=== PATIENT | male | born 1975 | race African-American/Black ===

== ENCOUNTER → 2020-02-01 | Emergency (ER) | payer MEDICAID ==
[~2020-02-01] VITALS: Ht 170.2 cm; Wt 68.0 kg
[~2020-02-01] MED LIST: CERT200K SC; CIPR-173 PO; ONDANSETRON HCL 4 MG/2 ML VIAL IM ONE; ONDANSETRON HCL 4 MG/2 ML VIAL IV ONE; SODIUM CHLORIDE 0.9% 1,000 ML IV ONE; SODIUM CHLORIDE 0.9% 500 ML IV ONE
[2020-02-01 01:07] VITALS: BP 117/82
== END | disposition home or self-care (01) ==
LOC: EDUNIT# 00:09 → EDBD 00:25 → ER 00:28
DX: S05.12XA Contusion of eyeball and orbital tissues, left eye, initial encounter (principal); F10.129 Alcohol abuse with intoxication, unspecified; I10 Essential (primary) hypertension; E11.9 Type 2 diabetes mellitus without complications; Y04.0XXA Assault by unarmed brawl or fight, initial encounter; Y93.89 Activity, other specified; Y92.89 Other specified places as the place of occurrence of the external cause; Y99.8 Other external cause status; Y90.9 Presence of alcohol in blood, level not specified
CPT/HCPCS: 70450; 70486; 72125; 96372; 99285; J2405; J7030

== ENCOUNTER 2024-01-21 14:12 | Emergency (ER) | payer MEDICAID ==
[~2024-01-21] VITALS: Ht 167.6 cm; Wt 63.6 kg
[~2024-01-21 14:12] MED LIST changes: -ONDANSETRON HCL 4 MG/2 ML VIAL IM ONE; -ONDANSETRON HCL 4 MG/2 ML VIAL IV ONE; -SODIUM CHLORIDE 0.9% 1,000 ML IV ONE; -SODIUM CHLORIDE 0.9% 500 ML IV ONE
[2024-01-21 16:06] LABS: Basophils # (auto) 0.1 10 ^3/uL (0-0.2); Eosinophils # (auto) 0.3 10 ^3/uL (0-0.8)
[2024-01-21] MEDS: METOCLOPRAMIDE HCL 5MG/ml INJ 2ml VIAL IV ONE (16:21)
[2024-01-21 16:22] LABS: INR 1.02 (0.9-1.15); Lymphocytes # (auto) 1.4 10 ^3/uL (0.4-5.4); Lymphocytes % (auto) 11.5 % (10.0-50.0); Partial Thromboplastin Time 34.7 SEC (24.5-34.5); Prothrombin Time 10.8 sec (9.3-11.8)
[2024-01-21] MEDS: MORPHINE SULFATE 4 MG/ML SYR/VIAL IV ONE (16:23)
[2024-01-21 16:24] LABS: Alkaline Phosphatase 93 U/L (46-116); Anion Gap 3 (5-15); Aspartate Aminotransferase 14 U/L (13-40); BUN/Creatinine Ratio 8.6 (10.0-20.0); Basophils % (auto) 0.7 % (0.0-2.0); Blood Urea Nitrogen 19 mg/dL (9-23); Calcium 10.9 mg/dL (8.7-10.4); Carbon Dioxide 20 mmol/L (20-30); Chloride 112 mmol/L (98-107); Eosinophils % (auto) 2.3 % (0.0-7.0); Glucose 78 mg/dL (74-106); Hematocrit 43.6 % (41.0-53.0); Hemoglobin 14.4 g/dL (13.5-17.5); Lipase 51 U/L (12-53); Mean Corpuscular Volume 93.8 fL (80.0-100.0); Monocytes # (auto) 1.1 10 ^3/uL (0-1.3); Monocytes % (auto) 8.8 % (0.0-12.0); Neutrophils # (auto) 9.3 10 ^3/uL (1.6-8.6); Neutrophils % (auto) 76.7 % (37.0-80.0); Nucleated Red Blood Cells % 0.2 %; Potassium 4.2 mmol/L (3.5-5.1); Red Blood Cells 4.65 10^6/uL (4.5-5.90); Red Cell Distribution Width 15.2 % (11.8-14.3); Sodium 135 mmol/L (136-145); White Blood Cell 12.1 10^3/uL (4.4-10.8)
[2024-01-21 16:25] LABS: Bilirubin, Total 0.3 mg/dL (0.2-1.0); Total Protein 10.1 g/dL (5.7-8.2)
[2024-01-21 16:29] LABS: Alanine Aminotransferase < 9 U/L (7-40)
[2024-01-21 16:50] LABS: Platelet Estimate Markedly Increased
[2024-01-21 16:51] LABS: Anisocytosis Slight; Large Platelets FEW
[2024-01-21 18:01] LABS: Urine Amorphous Crystal FEW /hpf (None Seen); Urine Blood Negative /uL (Negative); Urine Clarity Clear (Clear); Urine Color Light-Yellow (Yellow); Urine Hyaline Cast FEW /lpf (0 - 2); Urine Protein, UAD TRACE (Negative); Urine Specific Gravity 1.011 (1.001-1.035); Urine Urobilinogen Normal (Negative); Urine WBC <1 /hpf (0 - 3); Urine pH 5.5 (5.0-9.0)
[2024-01-21 18:33] LABS: Urine Bacteria NONE SEEN /hpf (None Seen)
[2024-01-21] MEDS: PIPERACILLIN-TAZOB 3.375GM 100 ML IV ONE (18:55)
[2024-01-21 20:03] VITALS: BP 122/79; PULSE 88; RESP 16; TEMP 98.7; O2SAT 99
== END 2024-01-21 16:34 | disposition left against medical advice (07) ==
LOC: EDUNIT# 14:12 → EDBD 14:12 → ER 14:12
DX: R10.84 Generalized abdominal pain (principal); K50.90 Crohn's disease, unspecified, without complications; E11.9 Type 2 diabetes mellitus without complications; I10 Essential (primary) hypertension; F17.210 Nicotine dependence, cigarettes, uncomplicated; F12.10 Cannabis abuse, uncomplicated; Z88.8 Allergy status to other drugs, medicaments and biological substances
CPT/HCPCS: 36415; 80053; 81001; 83605; 83690; 84484; 85025; 85610; 85730; 87040; 96365; 96375; 99284; J2270; J2543; J2765